=== PATIENT | male | born 1960 | race Caucasian/White ===

== ENCOUNTER 2017-02-04 21:35 | Emergency (ER) | payer OTHER ==
[~2017-02-04] VITALS: Ht 165.1 cm; Wt 113.4 kg
[2017-02-04 21:38] VITALS: BP 139/92
--- NOTE | 2017-02-04 21:38 | NUR ---
BIBA TO ER BED 7
[2017-02-04] MEDS ORDERED: KETOROLAC 30 MG/ML VIAL IVP ONE (21:45)
[2017-02-04] MEDS ORDERED: NACL 0.9% 2,000 ML IV ONE (21:45)
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
--- NOTE | 2017-02-04 22:24 | NUR ---
LAB AT BEDSIDE
--- NOTE | 2017-02-04 22:27 | NUR ---
CURBER UNABLE TO OBTAIN SPECIMEN, NOTIFIED.
--- NOTE | 2017-02-04 23:05 | NUR ---
Patient appears to be resting comfortably in bed. Vital Signs within normal limits. Respirations even and unlabored.
--- NOTE | 2017-02-04 23:25 | NUR ---
LABS DRAWN AT BEDSIDE
[2017-02-04 23:31] LABS: HEMOGLOBIN 11.6 g/dL (12.0-18.0); MEAN CORPUSCULAR HEMOGLOBIN 31 pg (27-31); RED BLOOD CELL COUNT(AUTO) 3.78 MIL/uL (4.20-6.10)
[2017-02-04 23:34] LABS: HEMATOCRIT 34.4 % (36-52); MEAN CORPUSCULAR HGB CONC 34 g/dL (33-37); MEAN CORPUSCULAR VOLUME 91 fL (80-94); PLATELET COUNT (AUTO) 70 K/uL (140-450); RED CELL DISTRIBUTION WIDTH 15.8 % (11.6-13.7); WHITE BLOOD COUNT (AUTO) 3.4 K/uL (4.8-10.8)
[2017-02-04 23:39] LABS: BARBITURATE, URINE NEG. ng/ml (NEG <=200); BENZODIAZEPINE, URINE POS. ng/mL (NEG <=200); CANNABINOID, URINE POS. ng/mL (NEG <=50); COCAINE, URINE NEG. ng/mL (NEG <=300); OPIATE, URINE NEG. ng/mL (NEG <=2000); PHENCYCLIDINE SCREEN,URINE NEG. ng/mL (NEG <=25)
[2017-02-04 23:47] LABS: ALBUMIN 2.9 g/dL (3.4-5.0); ASPARTATE AMINOTRANSFERASE 29 U/L (15-37); CARBON DIOXIDE 25.9 mmol/L (21-32); CHLORIDE 106 mmol/L (98-107); CREATININE 0.6 mg/dL (0.7-1.3); GFR ARICAN-AMERICAN 179 mL/min (>90); GLUCOSE 100 mg/dL (74-106); SODIUM SERUM 140 mmol/L (136-145); TOTAL BILIRUBIN 1.9 mg/dL (0.0-1.0); UREA NITROGEN, BLOOD 11 mg/dL (7-18)
[2017-02-04 23:48] LABS: PROTHROMBIN TIME 12.1 secs (10.8-13.4)
[2017-02-04 23:50] LABS: EOSINOPHILS % (MANUAL) 5 % (0-4); LYMPHOCYTES % (MANUAL) 76 % (20-46); MONOCYTES % (MANUAL) 11 % (5-12)
[2017-02-04 23:54] LABS: ACETAMINOPHEN < 0.5 ug/ml (10-30); SALICYLATE < 2.8 mg/dL (2.8-20.0)
[2017-02-04 23:56] LABS: POTASSIUM 2.9 mmol/L (3.5-5.1)
[2017-02-05] MEDS ORDERED: POTASSIUM CHLORIDE 10 MEQ TABER PO ONE (00:30)
--- NOTE | 2017-02-05 01:53 | NUR ---
Patient appears to be resting comfortably in bed. Vital Signs within normal limits. Respirations even and unlabored.
--- NOTE | 2017-02-05 06:10 | NUR ---
Patient discharged with v/s stable. Written and verbal after care instructions given and explained. Patient verbalized understanding. Wheel Chair Assisted with to home. All questions addressed prior to discharge. Advised to follow up with PMD. HOMELESS PACKET GIVEN TO PATIENT WITH LIST OF SHELTERS.
[2017-02-05 06:12] VITALS: BP 143/81
== END 2017-02-05 06:12 | disposition home or self-care (01) ==
LOC: MED 21:35
DX: R53.1 Weakness (principal); M79.1 Myalgia; F19.10 Other psychoactive substance abuse, uncomplicated; E87.6 Hypokalemia; I10 Essential (primary) hypertension; M86.9 Osteomyelitis, unspecified; G89.29 Other chronic pain; M54.5 Low back pain
CPT/HCPCS: 36415; 80053; 80305; 85025; 85610; 96361; 96374; 99284; G0480; G0482; J1885; J7030

== ENCOUNTER 2019-04-10 21:23 | Emergency (ER) | payer OTHER ==
[~2019-04-10] VITALS: Ht 167.6 cm; Wt 81.6 kg
[2019-04-10 21:23] VITALS: BP 169/101
--- NOTE | 2019-04-10 21:23 | NUR ---
PT CHRISTA BLS TO ER BED 06
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
--- NOTE | 2019-04-10 22:28 | NUR ---
ANDRIY'S LENS IN PLACE BILATERALLY. 500ML FLOWING IN EACH EYE. WILL CONTINUE TO MONITOR.
[2019-04-11 00:05] VITALS: BP 149/86
--- NOTE | 2019-04-11 00:05 | NUR ---
Patient discharged with v/s stable. Written and verbal after care instructions given and explained. Patient verbalized understanding. Ambulatory with steady gait. All questions addressed prior to discharge. Advised to follow up with PMD.
== END 2019-04-11 00:05 | disposition home or self-care (01) ==
LOC: MED 21:23
DX: T65.893A Toxic effect of other specified substances, assault, initial encounter (principal); H10.213 Acute toxic conjunctivitis, bilateral; E11.9 Type 2 diabetes mellitus without complications; I10 Essential (primary) hypertension; Y92.89 Other specified places as the place of occurrence of the external cause
CPT/HCPCS: 99283